=== PATIENT | female | born 2005 | race Caucasian/White ===

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

== ENCOUNTER 2023-03-07 19:33 | Emergency (ER) | payer BC, MEDICAID ==
[~2023-03-07] VITALS: Ht 157.5 cm; Wt 72.6 kg
[2023-03-07] MEDS ORDERED: NAPR-915 (19:48)
[2023-03-07] MEDS ORDERED: CYCL10TA25 (19:48)
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
[2023-03-07] MEDS ORDERED: HOLD METFORMIN - RECEIVED CONTRAST 20 ML VIAL IV SCH (20:30)
[2023-03-07] MEDS ORDERED: IOHEXOL 350 MG/ML 100 ML (OMNIPAQUE 350) VIAL IV ONE (20:30)
[2023-03-07] MEDS ORDERED: NS 100 ML (IVPB) BAG IV ONE (20:30)
[2023-03-07 20:39] LABS: ALBUMIN 4.2 GM/DL (3.2-4.5); BILIRUBIN,TOTAL 0.5 MG/DL (0.1-1.0); CALCIUM 8.9 MG/DL (8.5-10.1); CREATININE SERUM 0.75 MG/DL (0.60-1.30); POTASSIUM 3.7 MMOL/L (3.6-5.0)
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
[2023-03-07 20:55] VITALS: BP 132/89
== END 2023-03-07 20:55 | disposition home or self-care (01) ==
LOC: EDUNIT# 19:33 → ER 19:42
DX: M54.2 Cervicalgia (principal); M25.511 Pain in right shoulder; F17.200 Nicotine dependence, unspecified, uncomplicated; Y04.8XXA Assault by other bodily force, initial encounter; Y92.89 Other specified places as the place of occurrence of the external cause
CPT/HCPCS: 36415; 70498; 80053